=== PATIENT | male | born 1995 | race Caucasian/White ===

== ENCOUNTER 2019-12-11 16:15 | Emergency (ER) | payer OTHER, MEDICAID, SELFPAY ==
[2019-12-11 16:19] VITALS: BP 97/60; PULSE 76; RESP 16; TEMP 37; O2SAT 100; BMI 17.1
--- NOTE | 2019-12-11 16:24 | DI.RAD.S_ITS ---
PROCEDURE: XR FINGER RT MIN 2V INDICATIONS: finger injury TECHNIQUE: AP hand, 2 views of the middle finger(s) acquired. COMPARISON: None. FINDINGS: Soft tissue injury involving the distal aspect of the distal phalanx of the 3rd right digit is identified without a definite underlying bony abnormality. No displaced fracture or dislocation is identified. No suspicious osseous lesion is evident. There are severe degenerative changes involving the proximal interphalangeal joint of the 4th digit with overlying soft tissue swelling, which probably is related to a previous injury. IMPRESSION: 1. Soft tissue injury involving the distal margin of the 3rd right digit without an associated fracture. 2. 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 Dictated by: Mario Groves M.D. on 12/11/2019 at 15:55 Approved by: Mario Groves M.D. on 12/11/2019 at 15:56
--- NOTE | 2019-12-11 17:05 | ED.GENADULT ---
HPI - General Adult General Chief complaint: Extremity Injury, Upper Stated complaint: crush injury right middle finger Time Seen by Provider: 12/11/19 16:45 Source: patient Mode of arrival: Ambulatory Limitations: no limitations History of Present Illness HPI narrative: Left hand dominant male here for evaluation of an injury he sustained to his right middle finger. Patient states that he was working on his car and smashed his finger between 2 metal objects. Had bleeding. Covered with a bandage. Came into the emergency department for evaluation. Does not know when his last tetanus shot Related Data Previous Rx's Medication Instructions Recorded cephalexin [Keflex] 500 mg PO QID 10 Days #40 cap 12/11/19 tramadol [Ultram] 50 mg PO Q4H PRN #10 tab 12/11/19 Allergies Allergy/AdvReac Type Severity Reaction Status Date / Time No Known Drug Allergies Allergy Verified 12/11/19 16:23 Review of Systems Constitutional Constitutional: Denies fatigue and Denies headache(s) ENT Ears, Nose, Mouth, and Throat: Denies headache(s) Musculoskeletal Musculoskeletal: Denies tingling Comments: Injury to right middle finger Integumentary/Breasts Comments: Cut to right middle finger Neurologic Neurologic: Denies headache(s), Denies tingling and Denies paresthesias Endocrine Endocrine: Denies fatigue Hematologic/Lymphatic Hematologic/Lymphatic: Denies easy bleeding and Denies easy bruising Patient History Medical History Healthy adult (Acute) Social History Smoking Status: Current every day smoker Smoking Status: Current every day smoker tobacco type: cigarettes alcohol intake frequency: holidays/special occasions only Substance Use Type: marijuana Exam Initial Vital Signs Initial Vital Signs: Vital Signs Temperature 98.6 F 12/11/19 16:19 Pulse Rate 76 12/11/19 16:19 Respiratory Rate 16 12/11/19 16:19 Blood Pressure 97/60 12/11/19 16:19 Pulse Oximetry 100 12/11/19 16:19 Const General: cooperative, comfortable and well developed Limitations: mental status not altered HENMT Head: normal to inspection and normocephalic Cardio Pulses: radial pulses present on the right Skin Other: Patient has a avulsion injury of the skin in the distal aspect of the right middle finger from the D IP joint distal. The nail is missing from this area. Along with nail bed. Does feel like there is a small amount of bone that is exposed. Neuro Other: Patient with pain to the distal aspect of the right middle finger Extrem Other: Injury to the right middle finger Course Orders Ordered: ED Orders 12/11/19 16:24 XR finger RT min 2V Stat Discontinued Medications Cephalexin HCl (Keflex) 500 mg PO NOW ONE Stop: 12/11/19 18:05 Last Admin: 12/11/19 18:15 Dose: 500 mg Documented by: RAMSEY Diphtheria/Tetanus/Acell Pertussis (Adacel) 0.5 ml IM .ONCE ONE Stop: 12/11/19 17:10 Last Admin: 12/11/19 17:22 Dose: 0.5 ml Documented by: RAMSEY Lidocaine HCl (Xylocaine 1% (Pf)) 4 ml INJ NOW ONE Stop: 12/11/19 17:08 Last Admin: 12/11/19 17:21 Dose: 2 ml Documented by: RAMSEY Lidocaine HCl (Xylocaine 1% (Pf)) 2 ml INJ NOW ONE Stop: 12/11/19 17:25 Last Admin: 12/11/19 18:15 Dose: 2 ml Documented by: RAMSEY Vital Signs Vital signs: Vital Signs - 8 hr 12/11/19 16:19 12/11/19 18:26 Temperature 98.6 F Pulse Rate 76 78 Respiratory Rate 16 16 Blood Pressure 97/60 Pulse Oximetry 100 99 Medical Decision Making Imaging Data Extremity x-ray #1: Radiologist's Impression: [address] [address] XRay Report Signed Patient: Ld Vinson [facility]#: [id number] : 1995Acct:[id number] Age/Sex: 24 / MDate of Service: 12/11/19 Loc: ED Accession Number: [id number] Procedure: XR finger RT min 2V Ordering Provider: America Finley PROCEDURE: XR FINGER RT MIN 2V INDICATIONS: finger injury TECHNIQUE: AP hand, 2 views of the middle finger(s) acquired. COMPARISON: None. FINDINGS: Soft tissue injury involving the distal aspect of the distal phalanx of the 3rd right digit is identified without a definite underlying bony abnormality. No displaced fracture or dislocation is identified. No suspicious osseous lesion is evident. There are severe degenerative changes involving the proximal interphalangeal joint of the 4th digit with overlying soft tissue swelling, which probably is related to a previous injury. IMPRESSION: 1. Soft tissue injury involving the distal margin of the 3rd right digit without an associated fracture. 2. 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 Dictated by: Mario Groves M.D. on 12/11/2019 at 15:55 Approved by: Mario Groves M.D. on 12/11/2019 at 15:56 MDM Narrative Medical decision making narrative: Updated the patient's tetanus. X-ray shows no broken bones. Does have skin and tissue missing from the distal aspect of the right middle finger. His nail is also missing. Informed the patient that his nail may not grow back looking normal if at all. Does appear to have a small amount of bone exposed with minimal tissue overlying this. Two small stitches were placed in this area to try to approximate the wound as much as possible. I did discuss the case with Dr. Layton who is on-call for orthopedics who stated that which is start the patient on antibiotics cover it with a nonadherent bandaging have the patient follow-up in the orthopedic clinic the beginning of next week. This was done. Patient was given information for follow-up. Was given 1st dose of antibiotics here in the ER. Was given care instructions and return precautions. He expressed understanding and agreement. Discharge Plan Departure Patient Disposition: Home Clinical Impression: Avulsion of fingertip Qualifiers: Encounter type: initial encounter Qualified Code(s): S61.209A - Unspecified open wound of unspecified finger without damage to nail, initial encounter Discharge Date/Time: 12/11/19 18:27 Activity Restrictions/Additional Instructions: Your tetanus shot was updated today. Start taking the antibiotics as directed. Your 1st dose was given here in the emergency department. Please contact the [facility] Orthopedic Department at [phone] for a follow-up. Keep the bandage on until you follow up with them. This should be sometime in the beginning of next week. You can contact [phone] to help you establish a primary provider here in the area. Return to the emergency department for any new or worsening symptoms Prescriptions: New cephalexin [Keflex] 500 mg capsule 500 mg PO QID 10 Days Qty: 40 RF: 0 tramadol [Ultram] 50 mg tablet 50 mg PO Q4H PRN (Reason: pain) Qty: 10 RF: 0
[2019-12-11] MEDS: LIDOCAINE 1% (PF) 4 ML INJ (17:21)
[2019-12-11] MEDS: TET,DIPH,PERTUSS(ACELL),VAC/PF 0.5 ML SYRINGE IM (17:22)
[2019-12-11] MEDS: LIDOCAINE 1% (PF) 2 ML INJ (18:15)
[2019-12-11] MEDS: cephALEXin 250 MG CAPSULE 500 MG PO (18:15)
[2019-12-11 18:26] VITALS: PULSE 78; RESP 16; O2SAT 99
== END 2019-12-11 18:27 | disposition home or self-care (01) ==
PROVIDERS: Emergency Provider Emergency Medicine
DX: S61.209A Unspecified open wound of unspecified finger without damage to nail, initial encounter (principal); W22.8XXA Striking against or struck by other objects, initial encounter; Z23 Encounter for immunization
CPT/HCPCS: 73140; 90471; 99283; 90715

== ENCOUNTER 2019-12-16 20:32 | Emergency (ER) | payer OTHER, MEDICAID, SELFPAY ==
[2019-12-16 21:01] VITALS: BP 113/66; PULSE 90; RESP 16; TEMP 36.6; O2SAT 100; BMI 17.8
--- NOTE | 2019-12-16 22:37 | ED_ITS ---
HPI - Skin/Abscess/Foreign Bdy General Chief complaint: Skin/Abscess/Foreign Body Stated complaint: needs bandage changed Time Seen by Provider: 12/16/19 22:37 Source: patient Mode of arrival: Ambulatory Limitations: no limitations History of Present Illness HPI narrative: This is a 24-year-old male comes to the emergency department with avulsion injury to the middle finger tip on his right hand. Patient states this occurred 5 days ago he has not removed the bandage since then. He also has not called to follow up with Orthopedic surgery. He states he has been taking antibiotics. He does have some pain. It is not had any discharge, foul odor or increasing redness. He has not had any fevers. He states he is able to flex the distal end of the finger and this has been present since the initial injury. Patient and I discussed appropriate wound care that he needs to change his bandage daily and if there is any signs of infection he needs to return immediately. He expressed understanding for all of these and asked for a referral again to orthopedic surgery. Related Data Previous Rx's Medication Instructions Recorded cephalexin [Keflex] 500 mg PO QID 10 Days #40 cap 12/11/19 tramadol [Ultram] 50 mg PO Q4H PRN #10 tab 12/11/19 Allergies Allergy/AdvReac Type Severity Reaction Status Date / Time aspirin Allergy Severe Anaphylaxis Verified 12/16/19 21:01 Review of Systems Review of Systems ROS Unobtainable: All systems reviewed & are unremarkable except as noted in HPI and below Patient History Medical History Healthy adult (Acute) Social History Smoking Status: Current every day smoker Smoking Status: Current every day smoker tobacco type: cigarettes alcohol intake frequency: holidays/special occasions only Substance Use Type: marijuana Exam Narrative Exam Narrative: GENERAL: Alert and oriented x three, thin, well-nourished male in mild distress. HEENT: Head normocephalic, atraumatic, EOMI, pupils reactive, face symmetric, moist mucous membranes NECK: Supple, full range of motion EXTREMITIES: Normal range of motion except patient is unable to flex at the distal interphalangeal joint of the 3rd finger on his right hand. Patient does not have any swelling. He does have an avulsion injury with loss of the nail in the distal finger. It does appear to be healing there is a loss of the outer layer of skin. There appear to be good pink granulation tissue. There is some mild serosanguineous drainage but no purulent drainage. No foul odor, no erythema or swelling other signs of infection. Skin is nice and pink with good coloration, no clubbing or edema. Neurovascularly intact patient has cap refill less than 2 seconds in all 5 fingers and he has sensation to light touch. NEUROLOGICAL: Cranial nerves II through XII grossly intact. Moving all extremities SKIN: Warm, dry, no petechiae, no rashes or lesions. Initial Vital Signs Initial Vital Signs: Vital Signs Temperature 97.9 F 12/16/19 21:01 Pulse Rate 90 12/16/19 21:01 Respiratory Rate 16 12/16/19 21:01 Blood Pressure 113/66 12/16/19 21:01 Pulse Oximetry 100 12/16/19 21:01 Course Vital Signs Vital signs: Vital Signs - 8 hr 12/16/19 21:01 12/16/19 22:54 Temperature 97.9 F 98.0 F Pulse Rate 90 78 Respiratory Rate 16 18 Blood Pressure 113/66 102/62 Pulse Oximetry 100 100 Discharge Plan Departure Patient Disposition: Home Clinical Impression: Encounter for wound re-check Avulsion of fingertip Qualifiers: Encounter type: subsequent encounter Qualified Code(s): S61.209D - Unspecified open wound of unspecified finger without damage to nail, subsequent encounter Discharge Date/Time: 12/16/19 22:55 Instructions: DI for Avulsion Laceration (Not Requiring Sutures) Activity Restrictions/Additional Instructions: Follow-up with Orthopedic surgery this week for recheck, you likely also have a tendon injury is you cannot flex the distal end of your finger. Call for an appointment tomorrow. Wound Care: Keep wound(s) clean and dry. Wash twice daily with soap and water only then pat dry. Wash more frequently if it is visibly dirty. Wear a protective bandage when using her hands. Do not use over the counter products (alcohol or peroxide)on the wounds unless instructed by a physician. If wound condition worsens (increased/expanding redness, developing fluid blisters, or worsening pain), either contact your doctor for an urgent re- assessment , or return to the Emergency Department. Return to the Emergency Department for any new or worsening symptoms. Return if fever greater than 100.4 Fahrenheit, increased swelling, increasing pain or worsening symptoms such as increased discharge or spreading redness. Prescriptions: No Action cephalexin [Keflex] 500 mg capsule 500 mg PO QID 10 Days Qty: 40 RF: 0 tramadol [Ultram] 50 mg tablet 50 mg PO Q4H PRN (Reason: pain) Qty: 10 RF: 0 Referrals: Marita Garcia MD [Physician] -
[2019-12-16 22:54] VITALS: BP 102/62; PULSE 78; RESP 18; TEMP 36.7; O2SAT 100
== END 2019-12-16 22:55 | disposition home or self-care (01) ==
PROVIDERS: Emergency Provider Emergency Medicine
DX: Z48.00 Encounter for change or removal of nonsurgical wound dressing (principal); S61.209D Unspecified open wound of unspecified finger without damage to nail, subsequent encounter
CPT/HCPCS: 99281